=== PATIENT | male | born 1960 | race Caucasian/White ===

== ENCOUNTER 2024-01-19 07:37 | Outpatient (RCR) | payer OTHER, SELFPAY ==
[2024-01-19 07:50] VITALS: BP 149/74
[2024-01-19] MEDS: SODIUM BICARBONATE 1150 MEQ IV (08:00)
== END 2024-02-13 23:59 | disposition home or self-care (01) ==
LOC: OID 07:37
PROVIDERS: ATTENDING PHYSICIAN Surgery Vascular Surgery; FAMILY PHYSICIAN Family Medicine
DX: Z98.890 Other specified postprocedural states (principal); I71.019 Dissection of thoracic aorta, unspecified
CPT/HCPCS: 96360; 96361

== ENCOUNTER → 2024-01-19 08:19 | Outpatient (REF) | payer OTHER, SELFPAY | LOC: RAD 08:19 | PROVIDERS: ATTENDING PHYSICIAN Surgery Vascular Surgery; FAMILY PHYSICIAN Family Medicine | DX: Z98.890 Other specified postprocedural states (principal) | CPT/HCPCS: 71275; 74174; Q9967 ==

== ENCOUNTER → 2025-01-20 09:00 | Outpatient (REF) | payer OTHER, SELFPAY | LOC: RCS 09:00 | PROVIDERS: ATTENDING PHYSICIAN Internal Medicine Cardiovascular Disease | DX: I48.0 Paroxysmal atrial fibrillation (principal); I11.9 Hypertensive heart disease without heart failure; I71.010 Dissection of ascending aorta | CPT/HCPCS: 93306 ==

== ENCOUNTER → 2025-01-28 07:41 | Outpatient (REF) | payer OTHER, SELFPAY | LOC: RAD 07:41 | PROVIDERS: ATTENDING PHYSICIAN Surgery Vascular Surgery; FAMILY PHYSICIAN Family Medicine | DX: I71.010 Dissection of ascending aorta (principal) | CPT/HCPCS: 71275; 74174; Q9967 ==

== ENCOUNTER 2025-06-06 06:09 | Day surgery (SDC) | payer OTHER, SELFPAY ==
[2025-06-03 11:25] LABS: Hematocrit 42.1 % (39.0-52.0); Hemoglobin 14.5 g/dL (13.0-18.0); Mean Corp Hgb Conc. 34.4 g/dL (33.0-37.0); Mean Corpuscular Volume 89.4 fL (80.0-94.0); Platelet Count 245 10^3/uL (130-400); Red Cell Dist. Width 11.7 % (11.5-14.5)
[2025-06-03 11:54] LABS: Blood Urea Nitrogen 19 mg/dl (9-20); Calcium 9.2 mg/dl (8.4-10.2); Carbon Dioxide 30 mmol/L (22-30); Chloride 108 mmol/L (98-107); Glucose 91 mg/dl (70-99); Potassium 5.1 mmol/L (3.5-5.1); Sodium 141 mmol/L (135-145); eGFR > 60.00
[2025-06-03 14:01] VITALS: BMI 26.4
[2025-06-06] VITALS (8 sets, daily range): BP systolic 103–149; BP diastolic 54–79; BMI 26.4
[2025-06-06] MEDS: NORMOSOL-R/PLASMALYTE-A 1000 IV (07:57)
== END 2025-06-06 11:04 | disposition home or self-care (01) ==
LOC: SDS 06:09
PROVIDERS: ATTENDING PHYSICIAN Specialist; FAMILY PHYSICIAN Family Medicine
DX: N35.919 Unspecified urethral stricture, male, unspecified site (principal); Y84.2 Radiological procedure and radiotherapy as the cause of abnormal reaction of the patient, or of later complication, without mention of misadventure at the time of the procedure; N20.1 Calculus of ureter
CPT/HCPCS: 52353; 36415; 74018; 76000; 80048; 85027

== ENCOUNTER 2025-06-20 03:27 | Emergency (ER) | payer OTHER, SELFPAY ==
[2025-06-20 03:30] VITALS: BP 146/103
--- NOTE | 2025-06-20 04:00 | ED.GENMED ---
History of Present Illness
General
Chief Complaint: Urinary Symptoms
Source: patient
Exam Limitations: none
Time Seen by Provider: 06/20/25 03:46
Nursing documentation reviewed up to this point in time: agreed with
History of Present Illness
History of Present Illness:
Note:
CHIEF COMPLAINT(S)
Difficulty with urination post-surgery.
HISTORY OF PRESENT ILLNESS
The patient, a male who underwent surgery two weeks ago due to a blockage, reports difficulty with urination following catheter removal. The catheter was initially removed the Monday before but had to be reinserted for the due to
concerns about prolonged periods without urination. Once removed again on Monday, the patient noted being able to urinate during the day but experiences significant issues at night. The patient describes a period lasting four to five hours of
pacing around the house with severe pressure sensations before finally being able to urinate. He has tried using an ice pack to alleviate discomfort during these episodes. The patient mentioned a specific instance after drinking iced teas and water,
where he felt bloated and was unable to urinate properly for several hours. However, upon arrival at the medical facility, he was able to relieve himself. The sensation is described as a persistent pressure without accompanying pain or spasms. The
patient has a follow-up appointment scheduled with his urologist, Dr. Andrews, the following day.
PAST MEDICAL AND SURIGICAL HISTORY
Prostate cancer with associated scarring and prior management of urinary blockage.
MEDICATIONS
Tamsulosin requested for management of urinary symptoms.
SOCIAL DETERMINANTS AFFECTING HEALTH
Patient reports having to manage symptoms during daily activities such as spending time with his son and attending events, impacting his quality of life.
PHYSICAL EXAM
General: Alert, no acute distress.
Skin: Warm, dry.
Head: Normocephalic, atraumatic.
Neck: Supple, trachea midline.
Eye, Ears, Nose, Mouth, and Throat: Oral mucosa moist.
Cardiovascular: Normal peripheral perfusion, no edema.
Respiratory: Respirations are non-labored.
Gastrointestinal: Abdomen nondistended.
Back: Normal range of motion, normal alignment.
Musculoskeletal: Normal range of motion, normal strength.
Neurological: Alert and oriented to person, place, time, and situation, no focal neurological deficit observed.
Psychiatric: Cooperative, appropriate mood and affect.
PLAN
- Consider Tamsulosin for symptomatic relief of urinary issues.
- Urinalysis to be performed if urine sample is available.
- Patient advised to follow up with his urologist, Dr. Andrews, and consider moving the appointment earlier.
DIFFERENTIAL DIAGNOSIS
The Differential Diagnosis includes, in no particular order and is not limited to:
- Urinary retention secondary to urinary tract obstruction
- Prostate hypertrophy
- Bladder dysfunction
- Post-surgical effects
- Urinary tract infection
- Medication side effects
- Neurogenic bladder
- Urethral stricture
- Post-operative pain management issues
- Anxiety-related symptoms impacting urination
Disposition:
SUMMARY OF ENCOUNTER
Patient presented with urinary retention, reporting inability to urinate from 6 oclock onward. Upon arrival at the emergency department, the patient was able to urinate a significant amount and experienced complete relief. No acute distress was
noted post-voiding.
DISPOSITION
Discharge.
ASSESSMENT
Urinary retention, post-surgical related to recent catheter removal.
PLAN
The patient will follow up with his urologist as scheduled.
FOLLOW-UP INSTRUCTIONS
Please ensure to attend the scheduled appointment with your urologist tomorrow.
MEDICATION RECONCILIATION
Consideration of medication for urinary symptoms was discussed. Tamsulosin might be considered for future management as per urologist.
MEDICAL DECISION MAKING
- Number and Complexity of Problems Addressed: Chronic conditions affecting care include prostate cancer with associated scarring and urinary blockage. Differential includes urinary retention secondary to urinary tract obstruction, prostate
hypertrophy, and post-surgical effects.
- Risk: Prescription medication was considered for future management.
- Care significantly affected by Social Determinants of Health: The patients quality of life is impacted by urinary symptoms affecting daily activities.
DIAGNOSIS
- Urinary Retention, ICD-10: R33.8
Past History
Past History
ED Past Medical History: None
ED Past Surgical History: Urological
Patient has exhibited threatening behavior?: No
PSI?: No
Phy Exam
Physical Exam
Physical Exam:
.
Course
Vital Signs
Initial and Last Documented VS:
Initial Vital Signs
Temp Pulse Resp BP Pulse Ox
98.3 F 87 24 146/103 97
06/20/25 03:30 06/20/25 03:30 06/20/25 03:30 06/20/25 03:30 06/20/25 03:30
Last Documented Vital Signs
Temp Pulse Resp BP Pulse Ox
98.3 F 88 18 124/67 97
06/20/25 03:30 06/20/25 04:01 06/20/25 04:01 06/20/25 04:01 06/20/25 04:02
*Pulse Oximetry
SaO2: 97
Oxygen Mode of Delivery: Room air
Patient hypoxic: no
*Critical Care Note
Total Time (30-74mins, 75-104mins- exclusive of procedures): Not Applicable
ED Attending Note
-
Portions of this chart may have been created with voice recognition software.� Occasional wrong word or��sound alike� substitutions may have occurred due to the inherent limitations of voice recognition software.
Discharge Plan
Departure
Patient Disposition: Home (Routine Discharge)
Date of Disposition: 06/20/25
Time of Disposition: 04:00
Patient with high blood pressure during this ER visit?: Yes
Condition: Good
Discharge Problem:
Acute urinary retention
Instructions: Urinary retention (DC), BLOOD PRESSURE
Prescriptions:
No Action
aspirin 81 mg Tablet,Chewable
81 mg PO DAILY Qty: 0 3RF
multivitamin Tablet
1 tab PO DAILY
diltiazem HCl 120 mg Capsule,Extended Release 24 Hr
120 mg PO HS
lisinopril 10 mg Tablet
10 mg PO DAILY
docusate sodium [Colace] 100 mg Capsule
100 mg PO DAILY
rosuvastatin [Crestor] 20 mg Tablet
20 mg PO DAILY
metoprolol tartrate 100 mg tablet
100 mg PO BID
tamsulosin 0.4 mg Capsule
0.4 mg PO DAILY Qty: 30 0RF
Referrals:
Edy Spain Jr., MD [Active, Urology]
Activity Restrictions/Additional Instructions:
Thank You for choosing [facility].
It was a pleasure meeting you and taking part in your care. We hope for your continued healing and wellness.
Please read discharge instructions in their entirety. However, they are for general education and may not describe your exact diagnosis at discharge. Information on your ER visit and medical conditions were discussed with you along with appropriate
follow up information...
If indicated, please take your medications as instructed and indicated on discharge paperwork.
Please schedule a follow up appointment as directed. Call to schedule an appointment
Please return to the emergency department with ANY change in, persisting, or worsening of symptoms. If any of your symptoms do not improve, or persist, or become more severe within 6-12 hours, please return to the emergency department for further
care.
Please return to the emergency department if you develop a headache, neck pain/stiffness, fever greater than 100.4F, chest pain, shortness of breath, persistent nausea, vomiting, slurred speech, difficulty walking, numbness/tingling, weakness, signs
of infection or any other symptoms that are worrisome to you.
If you have any questions or concerns please do not hesitate to call the Hospital at or E-mail me directly at [email or web address]
Interventions
Interventions:
*Risk Screen - Suicide Last Done: 06/20/25 03:30
*General Assessment Last Done: 06/20/25 03:56
*Neglect/Abuse Screening Last Done: 06/20/25 03:56
*ED- Fall Risk Assessment Last Done: 06/20/25 03:56
*ED COVID-19 Vaccine History Last Done: 06/20/25 03:56
*Nursing Disposition Last Done: 06/20/25 04:04
ED-Male Genitourinary Assessment Last Done: 06/20/25 03:56
Discharge Date and Time
Discharge Date/Time: 06/20/25 04:15
Print Language: CZECH
[2025-06-20 04:01] VITALS: BP 124/67
== END 2025-06-20 04:15 | disposition home or self-care (01) ==
LOC: EMR 03:27
PROVIDERS: EMERGENCY PHYSICIAN Student in an Organized Health Care Education/Training Program; FAMILY PHYSICIAN Family Medicine
DX: R33.9 Retention of urine, unspecified (principal); R03.0 Elevated blood-pressure reading, without diagnosis of hypertension; C61 Malignant neoplasm of prostate
CPT/HCPCS: 99282

== ENCOUNTER 2025-07-22 04:43 | Inpatient (IN) | payer OTHER, SELFPAY ==
[2025-07-21 21:04] VITALS: BP 145/71
[2025-07-21 21:25] LABS: Hematocrit 39.7 % (39.0-52.0); Hemoglobin 14.0 g/dL (13.0-18.0); Mean Corp Hgb Conc. 35.3 g/dL (33.0-37.0); Mean Corpuscular Volume 85.7 fL (80.0-94.0); Nucleated Red Blood Cells % 0 % (-); Platelet Count 317 10^3/uL (130-400); Red Cell Dist. Width 11.6 % (11.5-14.5)
[2025-07-21 21:36] LABS: ALT (SGPT) 519 U/L (0-50); Albumin 4.1 g/dl (3.5-5.0); Alkaline Phosphatase 173 U/L (38-126); Blood Urea Nitrogen 23 mg/dl (9-20); Calcium 9.5 mg/dl (8.4-10.2); Carbon Dioxide 29 mmol/L (22-30); Chloride 104 mmol/L (98-107); Glucose 105 mg/dl (70-99); Potassium 4.1 mmol/L (3.5-5.1); Sodium 138 mmol/L (135-145); Total Protein 7.2 g/dl (6.3-8.2); eGFR > 60.00
[2025-07-21 21:42] LABS: Troponin I 0.015 ng/ml
[2025-07-21 21:47] LABS: AST (SGOT) 995 U/L (17-59)
[2025-07-21 22:09] VITALS: BP 183/79
[2025-07-21 22:10] VITALS: BMI 25.6
[2025-07-21 23:00] VITALS: BP 148/72
[2025-07-21] MEDS: NSS 1000 IV (23:57)
[2025-07-21] MEDS: TORADOL 15 MG IV (23:57)
[2025-07-21] MEDS: ZOFRAN 4 MG IV (23:57)
[2025-07-22] VITALS (11 sets, daily range): BP systolic 113–151; BP diastolic 61–79; BMI 25.6; BMI 25.5
[2025-07-22 00:01] LABS: Lipase 119 U/L (23-300)
--- NOTE | 2025-07-22 00:03 | ED.GENMED ---
History of Present Illness
General
Chief Complaint: Chest Pain
Source: patient
Exam Limitations: none
Time Seen by Provider: 07/21/25 23:24
History of Present Illness
History of Present Illness:
65-year-old male with history of coronary artery disease requiring CABG and stent presents complaining of lower chest and upper abdominal pain starting yesterday after eating pepperoni pizza. He ate the pizza again today and had more pain with
vomiting. The pain persists. Pain does not radiate to the back. Is not pleuritic in nature. No fevers. No shortness of breath. He was concerned about his prior cardiac history relative to his current discomfort.
Past History
Past History
ED Past Medical History: None
ED Past Surgical History: Urological
Patient has exhibited threatening behavior?: No
PSI?: No
Phy Exam
Physical Exam
Physical Exam:
General: Well-appearing male no acute respiratory distress
HEENT normal cephalic atraumatic
Heart: Regular rate and rhythm
Lungs: Clear no wheeze
Abdomen is soft tender in the epigastric region and mildly to the right upper quadrant negative Jordan sign no guarding nondistended
Extremities: No cyanosis
Scores
Heart Score for Chest Pain Patients
STEMI patient?: No
History: Slightly or Non-Suspicious
ECG: Normal
Age: >/= 65 years
Risk Factors: >/= 3 Risk Factors or History of CAD
Troponin: </= Normal Limit
Heart Score for Chest Pain Patients: 4
Heart Score Risk: 20.3% MACE over next 6 weeks
Course
Orders/Labs/Results
Orders:
Orders
07/21/25 20:59
ECG [Electrocardiogram (*1)] Urgent
Reason for Study: Chest Pain
EKG- Treatment ONCE
07/21/25 21:12
Complete Blood Count/With Diff Urgent
Comprehensive Metabolic Panel Urgent
Lipase Urgent
Comment: ADD ON
Troponin I Urgent
07/21/25 23:25
Add On- LAB Urgent
Tests Added?: lipase
07/21/25 23:38
0.9% Sodium Chloride 1000 ml [Nss] 1,000 ml IV BOLUS
Ketorolac [Toradol] 15 mg IV NOW STA
Ondansetron Injectable [Zofran] 4 mg IV NOW STA
07/22/25 00:00
US Abdomen Complete/Upper Urgent
Reason For Exam: elevated LFT, abdominal pain
Abnormal Lab Results
07/21/25
21:12
RBC 4.63 L 10^6/uL
(4.70-6.10)
Absolute Neuts (auto) 8.1 H 10^3/uL
(1.4-6.5)
Neutrophils % 78.9 H %
(42.2-75.2)
Lymphocytes % 14.2 L %
(20.5-51.1)
BUN 23 H mg/dl
(9-20)
Glucose 105 H mg/dl
(70-99)
Total Bilirubin 2.5 H mg/dl
(0.2-1.3)
AST 995 H* U/L
(17-59)
ALT 519 H* U/L
(0-50)
Alkaline Phosphatase 173 H U/L
(38-126)
07/21/25 21:12
07/21/25 21:12
Vital Signs
Initial and Last Documented VS:
Initial Vital Signs
Temp Pulse Resp BP Pulse Ox
98.2 F 91 18 145/71 99
07/21/25 21:04 07/21/25 21:04 07/21/25 21:04 07/21/25 21:04 07/21/25 21:04
Last Documented Vital Signs
Temp Pulse Resp BP Pulse Ox
98.2 F 82 15 148/72 98
07/21/25 21:04 07/22/25 00:45 07/22/25 00:45 07/21/25 23:00 07/22/25 00:45
MDM/Problems Addressed
Differential Diagnosis Includes:
Lower chest and epigastric pain. History of coronary artery disease requiring CABG and stent placement. Consider ACS versus gastritis or pancreatitis or biliary colic
EKG shows sinus rhythm with rate of 73 and no acute ischemic changes
LFTs are high with a bilirubin of 2.5 ALT of 519 and AST of 995.
Lipase is normal. Will order ultrasound. Toradol ordered for pain fluids and Zofran ordered
*Pulse Oximetry
SaO2: 97
Oxygen Mode of Delivery: Room air
Patient hypoxic: no
*Critical Care Note
Total Time (30-74mins, 75-104mins- exclusive of procedures): Not Applicable
Update Note
Update Note:
Ultrasound demonstrates gallstones and gallbladder. Discussed emergency room attending. Patient is feeling improved after medicine here. But given significant liver function abnormalities concern for possible common bile duct stone. Zosyn
ordered. Will mid to hospital for further evaluation
ED Attending Note
-
Portions of this chart may have been created with voice recognition software.� Occasional wrong word or��sound alike� substitutions may have occurred due to the inherent limitations of voice recognition software.
Discharge Plan
Departure
Patient Disposition: Admit
Date of Disposition: 07/22/25
Time of Disposition: 01:16
Presentation/result/management discussed w/ accepting MD/DO: Hospitalist
Discharge Problem:
Abdominal pain
Prescriptions:
No Action
aspirin 81 mg Tablet,Chewable
81 mg PO DAILY Qty: 0 3RF
multivitamin Tablet
1 tab PO DAILY
diltiazem HCl 120 mg Capsule,Extended Release 24 Hr
120 mg PO HS
lisinopril 10 mg Tablet
10 mg PO DAILY
docusate sodium [Colace] 100 mg Capsule
100 mg PO DAILY
rosuvastatin [Crestor] 20 mg Tablet
20 mg PO DAILY
metoprolol tartrate 100 mg tablet
100 mg PO BID
tamsulosin 0.4 mg Capsule
0.4 mg PO DAILY Qty: 30 0RF
Referrals:
Lobito Barrett MD [Family Provider, Family Practice]
Interventions
Interventions:
*Risk Screen - Suicide Last Done: 07/21/25 21:07
*General Assessment Last Done: 07/21/25 21:07
*Neglect/Abuse Screening Last Done: 07/21/25 21:07
*ED- Fall Risk Assessment Last Done: 07/21/25 22:15
*ED COVID-19 Vaccine History Last Done: 07/21/25 21:07
*ED Influenza Vaccine History Last Done: 07/21/25 21:07
ED- Cardiac Assessment Last Done: 07/21/25 22:10
Discharge Date and Time
Print Language: HUNGARIAN
[2025-07-22] MEDS: ZOSYN 50 IV (01:31)
[2025-07-22 03:04] LABS: Troponin I 0.017 ng/ml
--- NOTE | 2025-07-22 04:38 | HPS.HSE ---
Family Physician
-
Family Physician: Lobito Barrett
Chief Complaint
-
Abd Pain, N/V
History of Present Illness
Patient is a 65y M with PMH significant for aortic dissection s/p repair, hypertension and prostate cancer who presents to ED complaining of abdominal pain and N/V. Patient states that he woke Monday AM with epigastric abdominal pain. A short
time later he developed nausea and had multiple episodes of non-bloody emesis throughout the day. His pain also persisted throughout the day and was severe at times. He denies any prior history of similar symptoms.
Patient presented to the ED for further evaluation. In the ED his pain and nausea resolved after medication and have not recurred.
CT shows gallstones with borderline GB wall thickness and CBD size.
Medical History
Past Medical History
Past Medical History: Reports Other
Additional Past Medical History:
Aortic Dissection
Hypertension
Prostate Cancer s/p XRT
Kidney Stones
Past Surgical History: Reports Other
Additional Past Surgical History:
Aortic Dissection Repair (2022)
Cysto/ Lithotripsy (6 weeks ago)
Social History
Tobacco: Non-smoker
Alcohol: Occasional
Drug: None
Family History
Family History: Not pertinent
Allergies / Home Medications
Allergies reflects when Allergies were last updated in [facility].
Home Medications with original date entered in [facility]
Allergy/Medication List:
Allergies
Allergy/AdvReac Type Severity Reaction Status Date / Time
No Known Allergies Allergy Verified 07/21/25 21:08
Home Medications
aspirin 81 mg chewable tablet 81 mg PO DAILY #0 tabs 08/31/22
diltiazem HCl 120 mg capsule,24 hr,extended release 120 mg PO HS Arrhythmia 03/14/23
lisinopril 10 mg tablet 10 mg PO DAILY Blood Pressure 03/14/23
multivitamin 1 tab PO DAILY Supplement 03/14/23
rosuvastatin 20 mg tablet (Crestor) 20 mg PO DAILY High Cholesterol 03/14/23
metoprolol tartrate 100 mg tablet 100 mg PO BID Blood Pressure 03/25/23
tamsulosin 0.4 mg capsule 0.4 mg PO DAILY #30 caps 03/25/23
Review of Systems
-
History Source: Patient
Constitutional: Denies Fever or Chills
Respiratory: Denies Cough or Trouble Breathing
Cardiac: Denies Chest Pain or Palpitations
Abdomen/GI: Reports Abdominal Pain, Nausea and Vomiting; Denies Diarrhea, Constipated, Bloody Stools or Black Stools
: Denies Dysuria, Frequency or Flank Pain
Neurological: Denies Dizzy or Headache
Psych: Denies Depression or Anxiety
Physical Exam
Vital Signs
Vital Signs
Temp Pulse Resp BP Pulse Ox
98.2 F 79 11 142/79 99
07/21/25 21:04 07/22/25 04:00 07/22/25 04:00 07/22/25 04:00 07/22/25 04:00
Physical Exam
General: Other (65y M in no acute distress.)
HEENT: Moist mucous membranes and PERRLA
Respiratory: Clear; No Wheezes, Rales or Rhonchi
Cardiac: S1/S2 and Regular Rhythm; No Murmur
GI: Soft, Non Tender, Non Distended and Normal Bowel Sounds
Musculoskeletal: No Clubbing, No Cyanosis and No Edema
Neuro: AO x 3
Laboratory Results
-
07/21/25 21:12
07/21/25 21:12
Laboratory Results
Total Bilirubin 2.5 mg/dl (0.2-1.3) H 07/21/25 21:12
AST 995 U/L (17-59) H* 07/21/25 21:12
ALT 519 U/L (0-50) H* 07/21/25 21:12
Alkaline Phosphatase 173 U/L (38-126) H 07/21/25 21:12
Troponin I 0.017 ng/ml 07/22/25 02:22
Lipase 119 U/L (23-300) 07/21/25 21:12
Impression/Plan
-
A/P: Patient is a 65y M with PMH significant for aortic dissection s/p repair who presents to ED complaining of abdominal pain with N/V.
Symptomatic Cholelithiasis
- Admit for further evaluation and treatment.
- Abnormal LFTs, abd pain, nausea / vomiting and abnormal CT findings.
- Symptoms resolved since arrival - ? passed CBD stone.
- Supportive care with IVFs, NPO, pain control and antiemetics.
- GI evaluation for additional recommendations - MRCP v ERCP.
- Follow for any new / worsening symptoms.
Benign Hypertension
History of Aortic Dissection s/p Repair
- Stable. BP well-controlled.
- Continue current med regimen with holding parameters.
History of Prostate Cancer
- Stable. Continue tamsulosin.
- Bladder scan protocol.
DVT Prophylaxis: SCDs
Code Status: Full
[2025-07-22 06:47] LABS: Hematocrit 35.4 % (39.0-52.0); Hemoglobin 12.3 g/dL (13.0-18.0); Mean Corp Hgb Conc. 34.7 g/dL (33.0-37.0); Mean Corpuscular Volume 87.2 fL (80.0-94.0); Platelet Count 260 10^3/uL (130-400); Red Cell Dist. Width 11.6 % (11.5-14.5)
[2025-07-22 07:21] LABS: ALT (SGPT) 516 U/L (0-50); AST (SGOT) 726 U/L (17-59); Albumin 3.3 g/dl (3.5-5.0); Alkaline Phosphatase 140 U/L (38-126); Blood Urea Nitrogen 24 mg/dl (9-20); Calcium 8.4 mg/dl (8.4-10.2); Carbon Dioxide 32 mmol/L (22-30); Chloride 106 mmol/L (98-107); Estimated Creatinine Clearance 56 ml/min; Glucose 88 mg/dl (70-99); Potassium 4.2 mmol/L (3.5-5.1); Sodium 139 mmol/L (135-145); Total Protein 5.9 g/dl (6.3-8.2); eGFR 55.78
--- NOTE | 2025-07-22 08:45 | EDCM ---
CM reviewed chart and met with pt bedside in Ed. Lives with his son, Cherelle [facility], 2-3 JORGE, first floor half bath, full flight to second floor bedroom and full bath.
Independent in ADLs, personal care and ambulation at baseline. No assistive devices.
Confirms prescription coverage.
No hx VN or SNf
PCP: Arnulfo Barrett
Pharmacy: [facility]
Anticipate discharge home, no needs. CM will continue to follow.
[2025-07-22] MEDS: LR 1000 IV ×2 (09:11→20:22)
[2025-07-22] MEDS: FLOMAX 0.4 MG PO (09:18)
[2025-07-22] MEDS: NSS (PRESERVATIVE FREE) 10 ML IV (09:18)
[2025-07-22] MEDS: LOW STRENGTH ASPIRIN 81 MG PO (09:18)
[2025-07-22] MEDS: PROTONIX IV 40 MG IV (09:18)
--- NOTE | 2025-07-22 09:35 | TRANSFER ---
Patient arrived from ED via wheelchair. Patient AAO x 3. VSS. Denies pain. OOB independent. IV fluids initiated. Patient NPO with sips of clears. GI consulted. patient educated on plan of care and potential treatments/procedures. Per patient, he
does have a business trip, out to [place] tomorrow and would like to be discharged sooner than later. Patient oriented to room. All patient needs met. No bed alarms due to patient being independent. Call carter and personal belongings within
reach.
--- NOTE | 2025-07-22 09:57 | CON.GI ---
Addendum entered and electronically signed by Gita Gibson MD 07/22/25 13:25:
I saw and examined the patient.
The SPEECH CORRECTION CONSULTANT or PA's note was reviewed and I agree with the note.
Comment:
This patient is a 65-year-old man with a history of coronary disease, CABG, aortic dissection with repair who was admitted with epigastric pain. In the ER he had abnormal LFTs and an ultrasound that showed cholelithiasis. He states that his pain
did resolve.
abd: soft, nontender
impression
abd pain
cholelithiasis
abnl lfts
plan:
- He does need better imaging to rule out choledocholithiasis which ideally should be with MRCP.
- Would follow LFTs and I would order hep panel as well. He does not have a history of any hepatitis however
- If he does have choledocholithiasis he will need an ERCP.
- NPO and ivf for now
Original Note:
Consultation
-
Date/Time Consultation Requested: 07/22/25 0850
Date/Time Consultation Performed: 07/22/25 0950
Requesting Provider: Bronson Reyes DO
Performing Provider: CEDRIC Cullen, Gita Gibson MD
Reason for Consultation: increased LFT's, abnormal US
Medical History
Chief Complaint / HPI
Chief Complaint: abdominal pain
History of Present Illness:
Pt is a 65yo hx CAD with prior stents on ASA daily, CABG, prostate CA with prior XRT, aortic dissection with prior repair 2021, TEVAR 2022, cysto and lithotripsy of ureteral stone and stricture dilation 05/2025 now presents with chest/abdominal pain.
On admission noted with bili 2.5, AST 995, ALT 519, alk phos 173 with lipase 119 with prior normal AST/ALT in January. US on admission with cholelithiasis and mild thickening of the gallbladder wall with top normal common bile duct. Acute
cholecystitis cannot be excluded and correlation with liver enzymes is needed and fatty liver.
In review with patient noted with new onset of chest/epigastric pain 07/21 after eating pizza. Pain was dull and rated 8/10 with nausea/vomiting of bile. Pain now resolved but noted with elevated LFT's. He also admits to some recent
unintentional wt loss of 10 lbs. He otherwise denies dysphagia, GERD, diarrhea, constipation, or rectal bleeding. No change in urine or stool color. No anticoagulation and occasional Tylenol use prior to admission.
Past Medical History
Past Medical History: CAD, Cancer (prostate CA with prior XRT), HTN and Other (type A aortic distention )
Past Surgical History: Cardiac (CABG, prior stents ), Urological (cysto and lithotripsy of ureteral stone and stricture dilation 05/2025 ) and Other (Emergent ascending aorta and vannesa arch replacement/resuspection adn reair of aortic valve 08/2022,
TEVAR 2022)
Social History
Tobacco: Non-Smoker
Alcohol: Occasional
Drug: None
Living: With Family
Employment: Employed
Family History
Family History: Other (no family hx Gallbladder, pancreatitic )
Allergies / Home Medications
Allergy/AdvReac Type Severity Reaction Status Date / Time
No Known Allergies Allergy Verified 07/21/25 21:08
�Medication �Instructions �Recorded
aspirin 81 mg chewable tablet 81 mg PO DAILY #0 tabs 08/31/22
diltiazem HCl 120 mg capsule,24 120 mg PO HS Arrhythmia 03/14/23
hr,extended release
lisinopril 10 mg tablet 10 mg PO DAILY Blood Pressure 03/14/23
rosuvastatin 20 mg tablet (Crestor) 20 mg PO DAILY High Cholesterol 03/14/23
tamsulosin 0.4 mg capsule 0.4 mg PO DAILY #30 caps 03/25/23
metoprolol succinate 200 mg 100 mg PO BID 07/22/25
tablet,extended release 24 hr
(Toprol XL)
therapeutic multivitamin 1 tab PO DAILY 07/22/25
Review of Systems
-
History Source: Patient
Constitutional: Reports Weight Loss (10 lbs recently unintentional )
EENT: Reports No Symptoms
Respiratory: Reports No Symptoms
Cardiac: Reports No Symptoms
Abdomen/GI: Reports Abdominal Pain, Nausea and Vomiting
: Reports No Symptoms
Musculoskeletal: Reports No Symptoms
Skin: Reports No Symptoms
Neurological: Reports Weakness
Endocrine: Reports No Symptoms
Hematologic/Lymphatic: Reports No Symptoms
Vital Signs
Temp Pulse Resp BP Pulse Ox
97.9 F 66 16 150/74 99
07/22/25 09:24 07/22/25 09:24 07/22/25 09:24 07/22/25 09:24 07/22/25 09:24
Physical Exam
Exam
General: Well Developed, Well Nourished and No Apparent Distress
HEENT: Normocephalic and Anicteric
Respiratory: Clear
Cardiac: Regular Rhythm
GI: Soft, Non Tender and Non Distended
Musculoskeletal: No Clubbing and No Cyanosis
Skin: Warm and Dry
Neuro: Awake, Alert and AO x 3
Psych: Calm
Results
WBC 6.6 10^3/uL (4.8-10.8) 07/22/25 06:24
Hgb 12.3 g/dL (13.0-18.0) L 07/22/25 06:24
Hct 35.4 % (39.0-52.0) L 07/22/25 06:24
MCV 87.2 fL (80.0-94.0) 07/22/25 06:24
Plt Count 260 10^3/uL (130-400) 07/22/25 06:24
Absolute Neuts (auto) 8.1 10^3/uL (1.4-6.5) H 07/21/25 21:12
Sodium 139 mmol/L (135-145) 07/22/25 06:24
Potassium 4.2 mmol/L (3.5-5.1) 07/22/25 06:24
Chloride 106 mmol/L (98-107) 07/22/25 06:24
Carbon Dioxide 32 mmol/L (22-30) H 07/22/25 06:24
BUN 24 mg/dl (9-20) H 07/22/25 06:24
Creatinine 1.4 mg/dL (0.7-1.3) H 07/22/25 06:24
Calcium 8.4 mg/dl (8.4-10.2) 07/22/25 06:24
Total Bilirubin 2.7 mg/dl (0.2-1.3) H 07/22/25 06:24
AST 726 U/L (17-59) H* 07/22/25 06:24
ALT 516 U/L (0-50) H* 07/22/25 06:24
Alkaline Phosphatase 140 U/L (38-126) H 07/22/25 06:24
Lipase 119 U/L (23-300) 07/21/25 21:12
Diagnostic Image Results:
07/22- US abdomen
1. There is cholelithiasis and mild thickening of the gallbladder wall with top normal common bile duct. Acute cholecystitis cannot be excluded and correlation with liver enzymes is needed.
2. There is fatty infiltration of the liver
Prior GI Procedures:
EGD: none
Colonoscopy: [facility] in past recalls as normal
Assessment / Plan
-
Pt is a 65yo hx CAD with prior stents on ASA daily, CABG, prostate CA with prior XRT, aortic dissection with prior repair 2021, TEVAR 2022, cysto and lithotripsy of ureteral stone and stricture dilation 05/2025 now presents with chest/abdominal
pain. On admission noted with bili 2.5, AST 995, ALT 519, alk phos 173 with lipase 119 with prior normal AST/ALT in January. US on admission with cholelithiasis and mild thickening of the gallbladder wall with top normal common bile duct. Acute
cholecystitis cannot be excluded and correlation with liver enzymes is needed and fatty liver.
-acute onset of epigastric/chest post prandial pain
-elevated LFT's
-US with cholelithiasis and mild GB wall thickening top normal CBD
other med problems:
CAD with prior stents, CABG, prostate CA with prior XRT, aortic dissection with prior repair 2021, TEVAR 2022, cysto and lithotripsy of ureteral stone and stricture dilation 05/2025
PLAN:
etiology of symptoms related to cholecystitis, CBD stone, vs other
plan for MRI with MRCP
trend labs, monitor for fever
pending imaging may need ERCP/surgical eval vs need for further liver serology work up
NPO
IVF
pain control as needed bur currently pain free
pt due to travel to [place] in AM -- advised to hold on trip with current work up
-
-
Thank you for consultation and allowing me to participate in the patient's care. Please call the regional economist GI physician during the after hours with any questions or concerns.
--- NOTE | 2025-07-22 15:11 | W.PN.UPDATE ---
Update Note
Progress Note Update
07/22 MRI with MRCP with and without contrast
1. CHOLELITHIASIS, gallbladder sludge, and gallbladder distention.
2. MILD INTRAHEPATIC and EXTRAHEPATIC BILIARY DILATATION.
3. Mild chronic bilateral renal disease.
4. Chronic abdominal aortic dissection.
5. 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
6. Moderate distention of the proximal colon with fecal material suggesting CONSTIPATION.
reviewed MRI with patient , Dr. Gibson, Dr. Connolly , nursing staff, and Dr. Hammonds
plan for EUS tomorrow pending results consider surgical eval
ok for clears now then low fat dinner then NPO in AM for EUS
repeat labs in AM
hepatitis panel added
will add Miralax daily with no stools for 3 days and constipation on imaging
--- NOTE | 2025-07-22 15:31 | W.PN.HOSP.TC ---
Today's Communication/Plan
-
Challenge with oral intake.
Follow LFT.
EGD with EUS in the morning
Empiric antibiotic
Assessment / Plan
Assessment / Plan
Impression/plan
A/P: Patient is a 65y M with PMH significant for aortic dissection s/p repair who presents to ED complaining of abdominal pain with N/V.
Symptomatic Cholelithiasis/biliary colic, concern for acute cholecystitis
US abdomen:
There is cholelithiasis and mild thickening of the gallbladder wall with top normal common bile duct. Acute cholecystitis cannot be excluded and correlation with liver enzymes is needed.
MRI abdomen:
1. CHOLELITHIASIS, gallbladder sludge, and gallbladder distention.
2. MILD INTRAHEPATIC and EXTRAHEPATIC BILIARY DILATATION.
3. Mild chronic bilateral renal disease.
4. Chronic abdominal aortic dissection.
5. 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
6. Moderate distention of the proximal colon with fecal material suggesting CONSTIPATION.
- Abnormal LFTs, abd pain, nausea / vomiting and abnormal CT findings.
- Symptoms resolved since arrival - ? passed CBD stone.
- Supportive care with IVFs, NPO, pain control and antiemetics.
Challenge with oral intake tonight.
EGD with EUS in the morning.
Consider surgical consult.
Noted with left shift on CBC improved. Would continue antibiotics at this point. Status post single dose of Zosyn in the ED. Will transition to Unasyn.
Acute kidney injury. Creatinine 1.4.
Hold lisinopril.
Continue IV fluids
Avoid NSAIDs
Follow BMP
Benign Hypertension
History of Aortic Dissection s/p Repair
- Stable. BP well-controlled.
- Continue current med regimen with holding parameters.
Status post aortic aneurysm endovascular repair 2022
History of Prostate Cancer
- Stable. Continue tamsulosin.
- Bladder scan protocol.
DVT Prophylaxis: SCDs
Code Status: Full
Anticipated Discharge: 24 - 48 hours
Subjective/Interval History
-
Date of Service: July 22, 2025
Objective Data
-
Labs:
Laboratory Results
07/22/25
06:24
WBC 6.6
Hgb 12.3 L
Hct 35.4 L
Plt Count 260
Sodium 139
Potassium 4.2
Chloride 106
Carbon Dioxide 32 H
BUN 24 H
Creatinine 1.4 H
Glucose 88
Calcium 8.4
Total Bilirubin 2.7 H
AST 726 H*
ALT 516 H*
Alkaline Phosphatase 140 H
Vital Signs:
Vital Signs
Temp Pulse Resp BP Pulse Ox
97.9 F 66 16 150/74 99
07/22/25 09:24 07/22/25 09:24 07/22/25 09:24 07/22/25 09:24 07/22/25 09:24
Physical Exam
-
General: Well Developed and No Apparent Distress
HEENT: Normocephalic, Atraumatic and Moist Mucous Membranes
Respiratory: Clear to Auscultation
Cardiac: Regular Rhythm and S1/S2; Negative Murmur, Rub or Gallop
GI: Soft, Nontender, Nondistended and Normal Bowel Sounds; Negative Organomegaly
Rectal: Deferred by Provider
Musculoskeletal: No Clubbing, No Cyanosis and No Edema
Skin: Negative Rash
Neuro: Nonfocal/Grossly Intact
[2025-07-22] MEDS: MIRALAX 17 GRAMS PO (16:23)
[2025-07-22] MEDS: UNASYN IV ×2 (17:07→21:11)
[2025-07-22] MEDS: TOPROL XL 100 MG PO (20:22)
[2025-07-22] MEDS: CARDIZEM CD PO (23:06)
[2025-07-23] VITALS (9 sets, daily range): BP systolic 105–182; BP diastolic 61–92; BMI 26.0
[2025-07-23] MEDS: UNASYN IV ×4 (04:12→22:52)
[2025-07-23 08:05] LABS: INR 1.20; PT 15.8 Sec (11.4-14.6)
[2025-07-23 09:00] LABS: Hematocrit 35.2 % (39.0-52.0); Hemoglobin 12.3 g/dL (13.0-18.0); Mean Corp Hgb Conc. 34.9 g/dL (33.0-37.0); Mean Corpuscular Volume 86.9 fL (80.0-94.0); Platelet Count 274 10^3/uL (130-400); Red Cell Dist. Width 11.6 % (11.5-14.5)
[2025-07-23] MEDS: NSS (PRESERVATIVE FREE) 10 ML IV (09:00)
[2025-07-23] MEDS: TOPROL XL 100 MG PO ×2 (09:00→21:07)
[2025-07-23] MEDS: PROTONIX IV 40 MG IV (09:00)
[2025-07-23] MEDS: LOW STRENGTH ASPIRIN 81 MG PO (09:00)
[2025-07-23] MEDS: MIRALAX 17 GRAMS PO (09:00)
[2025-07-23] MEDS: FLOMAX 0.4 MG PO (09:00)
[2025-07-23 09:02] LABS: ALT (SGPT) 354 U/L (0-50); AST (SGOT) 298 U/L (17-59); Albumin 3.1 g/dl (3.5-5.0); Alkaline Phosphatase 124 U/L (38-126); Blood Urea Nitrogen 19 mg/dl (9-20); Calcium 8.1 mg/dl (8.4-10.2); Carbon Dioxide 28 mmol/L (22-30); Chloride 105 mmol/L (98-107); Estimated Creatinine Clearance 71 ml/min; Glucose 76 mg/dl (70-99); Potassium 4.3 mmol/L (3.5-5.1); Sodium 137 mmol/L (135-145); Total Protein 5.6 g/dl (6.3-8.2); eGFR > 60.00
[2025-07-23] MEDS: LR 1000 IV ×2 (09:12→16:50)
--- NOTE | 2025-07-23 15:07 | CM ---
Home when stable, no needs.
Plan; Home when stable, no needs.
--- NOTE | 2025-07-23 17:27 | W.PN.HOSP.TC ---
Today's Communication/Plan
-
ERCP with CBD stone removed
General Surgery consulted
Assessment / Plan
Assessment / Plan
Impression/plan
A/P: Patient is a 65y M with PMH significant for aortic dissection s/p repair who presents to ED complaining of abdominal pain with N/V.
Symptomatic Cholelithiasis/biliary colic, concern for acute cholecystitis
US abdomen:
There is cholelithiasis and mild thickening of the gallbladder wall with top normal common bile duct. Acute cholecystitis cannot be excluded and correlation with liver enzymes is needed.
MRI abdomen:
1. CHOLELITHIASIS, gallbladder sludge, and gallbladder distention.
2. MILD INTRAHEPATIC and EXTRAHEPATIC BILIARY DILATATION.
3. Mild chronic bilateral renal disease.
4. Chronic abdominal aortic dissection.
5. 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
6. Moderate distention of the proximal colon with fecal material suggesting CONSTIPATION.
- Abnormal LFTs, abd pain, nausea / vomiting and abnormal CT findings.
- Symptoms resolved since arrival - ? passed CBD stone.
- Supportive care with IVFs, NPO, pain control and antiemetics.
Challenge with oral intake tonight.
ERCP 07/23 with CBD stone removed with sphincterectomy and pancreatic stent
General Surgery consultation with consideration of cholecystectomy
Noted with left shift on CBC improved. Would continue antibiotics at this point. Status post single dose of Zosyn in the ED. Will transition to Unasyn.
Acute kidney injury. Creatinine 1.4. Improved
Hold lisinopril.
Observe off IV fluids
Avoid NSAIDs
Follow BMP
Benign Hypertension
History of Aortic Dissection s/p Repair
- Stable. BP well-controlled.
- Continue current med regimen with holding parameters.
Status post aortic aneurysm endovascular repair 2022
History of Prostate Cancer
- Stable. Continue tamsulosin.
- Bladder scan protocol.
DVT Prophylaxis: SCDs
Code Status: Full
Anticipated Discharge: 24 - 48 hours
Subjective/Interval History
-
Date of Service: July 23, 2025
Objective Data
-
Labs:
Laboratory Results
07/23/25
06:39
WBC 7.1
Hgb 12.3 L
Hct 35.2 L
Plt Count 274
PT 15.8 H
INR 1.20
Sodium 137
Potassium 4.3
Chloride 105
Carbon Dioxide 28
BUN 19
Creatinine 1.1
Glucose 76
Calcium 8.1 L
Total Bilirubin 1.1 D
AST 298 H
ALT 354 H
Alkaline Phosphatase 124
Vital Signs:
Vital Signs
Temp Pulse Resp BP Pulse Ox
97.0 F 58 13 170/84 98
07/23/25 16:40 07/23/25 16:30 07/23/25 16:30 07/23/25 16:30 07/23/25 16:30
I&O
07/22/25 07/23/25 07/24/25
06:59 06:59 06:59
Intake Total 2420 / 2420 50 / 50
Balance 2420 / 2420 50 / 50
Physical Exam
-
General: Well Developed and No Apparent Distress
HEENT: Normocephalic, Atraumatic and Moist Mucous Membranes
Respiratory: Clear to Auscultation
Cardiac: Regular Rhythm and S1/S2; Negative Murmur, Rub or Gallop
GI: Soft, Nontender, Nondistended and Normal Bowel Sounds; Negative Organomegaly
Rectal: Deferred by Provider
Musculoskeletal: No Clubbing, No Cyanosis and No Edema
Skin: Negative Rash
Neuro: Nonfocal/Grossly Intact
[2025-07-23] MEDS: CARDIZEM CD 120 MG PO (22:57)
[2025-07-24] VITALS (14 sets, daily range): BP systolic 106–151; BP diastolic 59–85; BMI 26.0
[2025-07-24] MEDS: UNASYN IV ×4 (03:43→21:20)
[2025-07-24] MEDS: LOW STRENGTH ASPIRIN 81 MG PO (08:29)
[2025-07-24] MEDS: TOPROL XL 100 MG PO ×2 (08:29→21:20)
[2025-07-24] MEDS: MIRALAX PO (08:29)
[2025-07-24] MEDS: FLOMAX 0.4 MG PO (08:29)
[2025-07-24] MEDS: NSS (PRESERVATIVE FREE) 10 ML IV (08:29)
[2025-07-24] MEDS: PROTONIX IV 40 MG IV (08:29)
[2025-07-24 08:46] LABS: Hematocrit 36.0 % (39.0-52.0); Hemoglobin 12.9 g/dL (13.0-18.0); Mean Corp Hgb Conc. 35.8 g/dL (33.0-37.0); Mean Corpuscular Volume 87.0 fL (80.0-94.0); Platelet Count 259 10^3/uL (130-400); Red Cell Dist. Width 11.4 % (11.5-14.5)
[2025-07-24 09:35] LABS: Blood Urea Nitrogen 13 mg/dl (9-20); Calcium 8.3 mg/dl (8.4-10.2); Carbon Dioxide 29 mmol/L (22-30); Chloride 105 mmol/L (98-107); Estimated Creatinine Clearance 78 ml/min; Glucose 84 mg/dl (70-99); Potassium 4.2 mmol/L (3.5-5.1); Sodium 137 mmol/L (135-145); eGFR > 60.00
--- NOTE | 2025-07-24 11:29 | CON.GS ---
Consultation
-
Date/Time Consultation Performed: 07/24/2025 11:15 AM
Performing Provider: Stephen
Reason for Consultation: choledocholithiasis, cholelithiasis
Medical History
-
Chief Complaint: Abdominal pain
History of Present Illness:
Patient is a 65-year-old male with PMH notable for CAD/stents, CABG, prostate cancer with history of XRT, aortic dissection, TEVAR, ureteral stricture.
He was in his usual baseline state of health until this past week when he developed the acute onset of epigastric and substernal chest pain. He was promptly evaluated emergency department and found to have elevated LFTs, gallstones, mild thickening
of the gallbladder. He was admitted by the hospitalist service with GI consultation. An MRI was obtained which was suggestive of choledocholithiasis. He underwent ERCP sphincterotomy stone extraction and pancreatic duct stent placement yesterday
evening 07/23/2025.
Today patient is asymptomatic. Tolerating clear liquid diet. No abdominal pain.
Past Medical History
Past Medical History: Other ( CAD/stents, CABG, prostate cancer with history of XRT, aortic dissection, TEVAR, ureteral stricture.)
Past Surgical History: Other (CABG, coronary stents, cystoscopy lithotripsy and ureteral stricture dilation, ascending aorta and hemiarch replacement, TEVAR)
Social History
Tobacco: Non-Smoker
Alcohol: Occasional
Family History
Family History: Reviewed & Not Pertinent
Allergies / Home Medications
Allergy/AdvReac Type Severity Reaction Status Date / Time
No Known Allergies Allergy Verified 07/21/25 21:08
�Medication �Instructions �Recorded �Confirmed �Type
aspirin 81 mg chewable tablet 81 mg PO DAILY #0 tabs 08/31/22 07/22/25 Rx
diltiazem HCl 120 mg capsule,24 120 mg PO HS Arrhythmia 03/14/23 07/22/25 History
hr,extended release
lisinopril 10 mg tablet 10 mg PO DAILY Blood Pressure 03/14/23 07/22/25 History
rosuvastatin 20 mg tablet (Crestor) 20 mg PO DAILY High Cholesterol 03/14/23 07/22/25 History
tamsulosin 0.4 mg capsule 0.4 mg PO DAILY #30 caps 03/25/23 07/22/25 Rx
metoprolol succinate 200 mg 100 mg PO BID Blood Pressure 07/22/25 07/22/25 History
tablet,extended release 24 hr
(Toprol XL)
therapeutic multivitamin 1 tab PO DAILY Supplement 07/22/25 07/22/25 History
Review of Systems
-
History Source: Patient
All other systems: Negative unless noted
A 10 point review of systems was completed, and was negative except as per HPI.
Physical Exam
Vital Signs
Temp Pulse Resp BP Pulse Ox
98.3 F 64 16 140/70 98
07/24/25 11:22 07/24/25 11:22 07/24/25 11:22 07/24/25 11:22 07/24/25 11:22
07/23/25 07/24/25 07/25/25
06:59 06:59 06:59
Actual Weight 84.453 kg 84.567 kg
Body Mass Index (BMI) 26.0
Lab Results
07/24/25 07:51
07/24/25 07:51
WBC 10.3 10^3/uL (4.8-10.8) 07/24/25 07:51
Hgb 12.9 g/dL (13.0-18.0) L 07/24/25 07:51
Hct 36.0 % (39.0-52.0) L 07/24/25 07:51
Plt Count 259 10^3/uL (130-400) 07/24/25 07:51
Abs Immat Gran (auto) 0.0 10^3/uL (0-0.05) 07/21/25 21:12
Neutrophils % 78.9 % (42.2-75.2) H 07/21/25 21:12
Physical Exam
General: Well Developed, Well Nourished, No Apparent Distress and Comfortable
HEENT: Normocephalic, Anicteric and Moist Mucous Membranes
Respiratory: Non Labored Respirations
GI: Soft, Non Tender and Non Distended
Skin: Warm
Neuro: AO x 3
Psych: Calm
Data Reviewed
-
Radiology: Image Personally Visualized and interpreted (ERCP images showed opacification of the cystic duct and possible delayed filling of the gallbladder)
Ultrasound: Image Personally Visualized and interpreted (Cholelithiasis and mild gallbladder wall thickening with top normal common bile duct.) and Report Reviewed by me
MRI: Image Personally Visualized and interpreted (Biliary ductal dilation, gallbladder distention with small layering stones. No wall thickening. No Fred cholecystic edema. Diffuse biliary ductal dilation.) and Report Reviewed by me
Assessment / Plan
-
Assessment: 65-year-old male initially admitted with choledocholithiasis, gallstones also confirmed on MRI and ultrasound imaging. He is now postprocedure day 1 from ERCP sphincterotomy with stone extraction and prophylactic pancreatic duct
placement.
Reviewed with patient indication for cholecystectomy in the setting of gallstone mediated complication. He appears to be medically stable for cholecystectomy at this index hospitalization which patient advises is his preference as well.
Laparoscopic cholecystectomy with intraoperative cholangiogram was reviewed in detail with the patient clued the operative technique, potential operative findings and the management, alternative treatment options, benefits and risks such as but not
limited to bleeding, infectious and related complications iatrogenic injury to surrounding viscera, common bile duct injury, bile duct leak. We discussed the typical postoperative recovery pending the operative findings and procedure. Any of the
patient's concerns or questions were confirmed to be fully addressed.
Plan: Patient is added onto the OR schedule for cholecystectomy today
There is a somewhat busy OR schedule so advised patient that it would likely not be until this evening and there is a small but potential chance that surgery would have to be bumped pending emergency surgeries and the OR access
N.p.o.
IV fluids
Unasyn will be continued for antibiotic prophylaxis
Await timing of surgery this evening
--- NOTE | 2025-07-24 12:17 | W.PN.GI.CBS2 ---
Today's Communication / Plan
-
xray as outpatient
Assessment / Plan
-
Pt is a 65yo hx CAD with prior stents on ASA daily, CABG, prostate CA with prior XRT, aortic dissection with prior repair 2021, TEVAR 2022, cysto and lithotripsy of ureteral stone and stricture dilation 05/2025 now presents with chest/abdominal
pain. On admission noted with bili 2.5, AST 995, ALT 519, alk phos 173 with lipase 119 with prior normal AST/ALT in January. US on admission with cholelithiasis and mild thickening of the gallbladder wall with top normal common bile duct. Acute
cholecystitis cannot be excluded and correlation with liver enzymes is needed and fatty liver.
-acute onset of epigastric/chest post prandial pain
-elevated LFT's
-US with cholelithiasis and mild GB wall thickening top normal CBD
other med problems:
CAD with prior stents, CABG, prostate CA with prior XRT, aortic dissection with prior repair 2021, TEVAR 2022, cysto and lithotripsy of ureteral stone and stricture dilation 05/2025
PLAN:
- outpatient xray (we will arrange)
- other management per surgery
will sign off call with questions
Subjective
Subjective
Date of Service: July 24, 2025
Pt feels good
Objective
Data Reviewed
Laboratory Data:
Laboratory Results
07/24/25 07:51
07/24/25 07:51
Laboratory Results
PT 15.8 Sec (11.4-14.6) H 07/23/25 06:39
INR 1.20 07/23/25 06:39
Total Bilirubin 1.1 mg/dl (0.2-1.3) D 07/23/25 06:39
AST 298 U/L (17-59) H 07/23/25 06:39
ALT 354 U/L (0-50) H 07/23/25 06:39
Alkaline Phosphatase 124 U/L (38-126) 07/23/25 06:39
Lipase 119 U/L (23-300) 07/21/25 21:12
Vital Signs and I&O:
Vital Signs
Temp Pulse Resp BP Pulse Ox
98.3 F 64 16 140/70 98
07/24/25 11:22 07/24/25 11:22 07/24/25 11:22 07/24/25 11:22 07/24/25 11:22
I&O
07/23/25 07/24/25 07/25/25
06:59 06:59 06:59
Intake Total 2420 / 2420 50 / 50 540 / 540
Balance 2420 / 2420 50 / 50 540 / 540
Physical Exam
Physical Exam
GI: Soft and Non Distended
--- NOTE | 2025-07-24 15:12 | W.PN.HOSP.TC ---
Today's Communication/Plan
-
Scheduled for laparoscopic cholecystectomy
Assessment / Plan
Assessment / Plan
Impression/plan
A/P: Patient is a 65y M with PMH significant for aortic dissection s/p repair who presents to ED complaining of abdominal pain with N/V.
Symptomatic Cholelithiasis/biliary colic, concern for acute cholecystitis
US abdomen:
There is cholelithiasis and mild thickening of the gallbladder wall with top normal common bile duct. Acute cholecystitis cannot be excluded and correlation with liver enzymes is needed.
MRI abdomen:
1. CHOLELITHIASIS, gallbladder sludge, and gallbladder distention.
2. MILD INTRAHEPATIC and EXTRAHEPATIC BILIARY DILATATION.
3. Mild chronic bilateral renal disease.
4. Chronic abdominal aortic dissection.
5. 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
6. Moderate distention of the proximal colon with fecal material suggesting CONSTIPATION.
- Abnormal LFTs, abd pain, nausea / vomiting and abnormal CT findings.
- Symptoms resolved since arrival - ? passed CBD stone.
- Supportive care with IVFs, NPO, pain control and antiemetics.
Challenge with oral intake tonight.
ERCP 07/23 with CBD stone removed with sphincterectomy and pancreatic stent
General Surgery consultation with consideration of cholecystectomy
Noted with left shift on CBC improved. Would continue antibiotics at this point. Status post single dose of Zosyn in the ED. Will transition to Unasyn.
Acute kidney injury. Creatinine 1.4. Improved
Hold lisinopril.
Observe off IV fluids
Avoid NSAIDs
Follow BMP
Benign Hypertension
History of Aortic Dissection s/p Repair
- Stable. BP well-controlled.
- Continue current med regimen with holding parameters.
Status post aortic aneurysm endovascular repair 2022
History of Prostate Cancer
- Stable. Continue tamsulosin.
- Bladder scan protocol.
DVT Prophylaxis: SCDs
Code Status: Full
Anticipated Discharge: 24 - 48 hours
Subjective/Interval History
-
Date of Service: July 24, 2025
Objective Data
-
Labs:
Laboratory Results
07/24/25
07:51
WBC 10.3
Hgb 12.9 L
Hct 36.0 L
Plt Count 259
Sodium 137
Potassium 4.2
Chloride 105
Carbon Dioxide 29
BUN 13
Creatinine 1.0
Glucose 84
Calcium 8.3 L
Vital Signs:
Vital Signs
Temp Pulse Resp BP Pulse Ox
98.3 F 64 16 140/70 98
07/24/25 11:22 07/24/25 11:22 07/24/25 11:22 07/24/25 11:22 07/24/25 11:22
I&O
07/23/25 07/24/25 07/25/25
06:59 06:59 06:59
Intake Total 2420 / 2420 50 / 50 540 / 540
Balance 2420 / 2420 50 / 50 540 / 540
Physical Exam
-
General: Well Developed and No Apparent Distress
HEENT: Normocephalic, Atraumatic and Moist Mucous Membranes
Respiratory: Clear to Auscultation
Cardiac: Regular Rhythm and S1/S2; Negative Murmur, Rub or Gallop
GI: Soft, Nontender, Nondistended and Normal Bowel Sounds; Negative Organomegaly
Rectal: Deferred by Provider
Musculoskeletal: No Clubbing, No Cyanosis and No Edema
Skin: Negative Rash
Neuro: Nonfocal/Grossly Intact
--- NOTE | 2025-07-24 15:36 | W.SUR.PREOP ---
Pre-Operative Surgical Note
-
I have examined this patient prior to the performance of the scheduled procedure.
The patient's condition is unchanged from the time of the current History and
Physical and the patient is able to undergo the scheduled procedure.
--- NOTE | 2025-07-24 15:45 | CM ---
Home no needs.
Plan; Home no needs.
--- NOTE | 2025-07-24 17:21 | W.IMMPOSTOP ---
Surgical Immed Post Op Note
-
Primary Surgeon: Bandar Lemus MD
Assisting Surgeon: None
Pre-op Diagnosis: Choledocholithiasis
Post-op Diagnosis: Acute cholecystitis, choledocholithiasis
Procedure Performed: Laparoscopic cholecystectomy with cholangiogram
Anesthesia Type: General
Specimen / Cultures: Gallbladder and contents
Estimated Blood Loss: 11 cc
Complications: None
Operative Findings: Acutely inflamed edematous gallbladder. Critical view of safety obtained prior to a cholangiogram which demonstrated a long cystic duct, dilated CBD but otherwise no filling defects and fairly brisk flow into the duodenum. The
duct was ligated with a 0 PDS Endoloop. There was minimal spillage of bile and 2 stones from our ductotomy which were immediately removed.
--- NOTE | 2025-07-24 17:22 | OR.RPT ---
Operative Report
Operative Report
Patient Name: Octavio Almonte
: 1960
Date of Operation: 07/24/2025
Preoperative Diagnosis: Choledocholithiasis
Postoperative Diagnosis: Choledocholithiasis, acute cholecystitis
Procedure(s):
Laparoscopic Cholecystectomy with Cholangiogram
Surgeon(s):
Dr. Lemus
Handle Sander Operator(s):
SEVERO Cox
Anesthesia: General
Estimated Blood Loss: 11 cc
Urine Output: None
Drains/Lines/Implants: None
Specimens:
1. Gallbladder and contents
HPI/Surgical Indications:
This is a 65-year-old male who presented with abdominal pain. Exam, labs and imaging are consistent with choledocholithiasis for which he underwent a successful ERCP. Risks/Benefits/Alternatives were discussed at length regarding interval
cholecystectomy, and the patient agreed to proceed with surgery at the same admission.
Operative Findings: Acutely inflamed edematous gallbladder. Critical view of safety obtained prior to a cholangiogram which demonstrated a long cystic duct, dilated CBD but otherwise no filling defects and fairly brisk flow into the duodenum. The
duct was ligated with a 0 PDS Endoloop. There was minimal spillage of bile and 2 stones from our ductotomy which were immediately removed.
Procedure Description:
The patient was brought to the Operating Room and placed in the supine position with one arm tucked. Following uneventful induction of general endotracheal anesthesia, an orogastric tube was placed. The abdomen was prepped and draped in the usual
sterile fashion. A timeout was performed confirming the procedure, consent, and that IV antibiotics were infused and sequential compression devices were confirmed to be on. The abdomen was entered using a left subcostal Veress technique which
required a single pass followed by a 5 mm right upper quadrant Optiview trocar. Pneumoperitoneum to 15 mmHg pressure was obtained without difficulty and we confirmed that no injury had occurred during our entry. The patient was positioned in
reverse Trendelenberg and rotated with the right side up slightly. Two 5 mm trocars were then placed along the right subcostal margin, followed by a 12 mm port in the epigastrium. The gallbladder was elongated and distended and the wall appeared
thickened and inflamed. A locking grasping forceps was placed on the fundus of the gallbladder where it was then retracted cephalad and to the right. Using appropriate grasping instruments, the peritoneum overlying the triangle of Calot was incised
and extended superiorly on both the anterior and posterior gallbladder noyola. The infundibulum was dissected off the cystic plate. The cystic triangle was dissected until a critical view of safety was achieved. The cystic artery was medialized,
dissected and controlled with 2 proximal clips and 1 distal. The cystic duct/gallbladder junction in turn was identified, dissected circumferentially and a clip was placed. A ductotomy was made and a cholangiocatheter on an Perdomo clamp was inserted
into the cystic duct. A C-arm was draped and brought into the field. An intra-operative cholangiogram was performed and was noted to have:
No filling defects in the biliary tree
A long cystic duct and moderate biliary dilation
Brisk flow of contrast into the duodenum
Normal biliary anatomy
The catheter was then removed and the cystic duct was controlled with a 0 PDS Endoloop. After ensuring both the artery and duct were divided, the gallbladder was freed from the liver using electrocautery. There was some spillage of bile from our
ductotomy along with 2 small gallstones which were immediately removed. The gallbladder bed was inspected and excellent hemostasis was obtained. The gallbladder was extracted through the 12 mm trocar site using an endocatch bag. The abdomen was
again irrigated and excellent hemostasis was assured. All remaining trocars were then removed and the pneumoperitoneum was evacuated. The 12 mm trocar site was closed using 0 PDS suture. All trocar sites were closed at the skin level using 4-0
Monocryl followed by Dermabond. Overall, the patient tolerated the procedure well and was taken to the Recovery Room postoperatively in stable condition.
Ida was the attending physician and performed the procedure with assistance of the PA above. The assistance of SEVERO Cox was required due to the complexity of the procedure. During the procedure Elena assisted with port placement, tissue
retraction and holding camera as well as closure of the wound. I was present for all portions of the case, excluding skin closure.
Bandar Lemus MD
[2025-07-24 18:32] LABS: Hepatitis B Surface Antigen Negative (Negative)
[2025-07-24 18:50] LABS: Hepatitis C Antibody Negative (Negative)
[2025-07-24] MEDS: DILAUDID 0.5 MG IV (19:28)
[2025-07-24] MEDS: CARDIZEM CD 120 MG PO (22:16)
[2025-07-25 01:00] VITALS: BP 122/69
[2025-07-25 03:00] VITALS: BP 123/70
[2025-07-25 03:41] VITALS: BMI 26.6
[2025-07-25] MEDS: UNASYN IV ×2 (04:11→09:27)
[2025-07-25 07:05] VITALS: BP 123/78
[2025-07-25 08:57] LABS: Hematocrit 37.8 % (39.0-52.0); Hemoglobin 13.3 g/dL (13.0-18.0); Mean Corp Hgb Conc. 35.2 g/dL (33.0-37.0); Mean Corpuscular Volume 86.3 fL (80.0-94.0); Platelet Count 282 10^3/uL (130-400); Red Cell Dist. Width 11.5 % (11.5-14.5)
[2025-07-25 09:17] LABS: ALT (SGPT) 191 U/L (0-50); AST (SGOT) 97 U/L (17-59); Albumin 3.3 g/dl (3.5-5.0); Alkaline Phosphatase 111 U/L (38-126); Blood Urea Nitrogen 11 mg/dl (9-20); Calcium 8.5 mg/dl (8.4-10.2); Carbon Dioxide 27 mmol/L (22-30); Chloride 103 mmol/L (98-107); Estimated Creatinine Clearance 71 ml/min; Glucose 185 mg/dl (70-99); Potassium 4.5 mmol/L (3.5-5.1); Sodium 134 mmol/L (135-145); Total Protein 6.0 g/dl (6.3-8.2); eGFR > 60.00
[2025-07-25] MEDS: LOW STRENGTH ASPIRIN 81 MG PO (09:26)
[2025-07-25] MEDS: PROTONIX IV 40 MG IV (09:26)
[2025-07-25] MEDS: MIRALAX PO ×2 (09:26→09:29)
[2025-07-25] MEDS: TOPROL XL 100 MG PO (09:26)
[2025-07-25] MEDS: FLOMAX 0.4 MG PO (09:26)
[2025-07-25] MEDS: NSS (PRESERVATIVE FREE) 10 ML IV (09:27)
[2025-07-25 11:04] VITALS: BP 137/66
--- NOTE | 2025-07-25 11:07 | W.PN.GS2 ---
Addendum entered and electronically signed by Sergey Broussard MD 07/25/25 13:17:
Patient seen and examined.
No complaints, feels well. Pain well-controlled. No nausea or vomiting. Afebrile. Abdomen. Voiding. Passing flatus, no BM.
Gen: NAD
Abd: soft, NT/ND, non-peritoneal, incisions c/d/i - no erythema, ecchymosis or drainage
Patient is a 65 yo M p/w choledocholithiasis
S/p ERCP on 07/23 with CBD stone removed with sphincterectomy and pancreatic stent
POD#1 s/p lap den with IOC
AFVSS
Labs notable for mild reactive leukocytosis, normal bilirubin, down trending LFTs
Doing well from post op standpoint
Plan:
-- Regular diet
-- Pain control: Tylenol and Tramadol
-- OOB/Ambulate
-- Abx: none further needed from surgical perspective
-- OK for d/c from surgical standpoint
-- DC instructions updated
Original Note:
Today's Communication / Plan
-
dispo planning
Assessment / Plan
-
65 yo male presenting with choledocholithiasis and acute calculous cholecystitis s/p ERCP on 07/23 with CBD stone removed with sphincterectomy and pancreatic stent now POD #1 lap den with IOC
AFVSS
bilirubin wnl, minimal transaminitis (improved)
mild reactive leukocytosis
Doing well from post op standpoint
Plan:
Advance to regular diet
Analgesics prn
OOB/Ambulate
No need for further abx from surgical standpoint
Ok for d/c from surgical standpoint
Subjective Data
-
Date of Service: July 25, 2025
Pt seen and examined at bedside with Dr Broussard. Denies n/v. OOB to chair. Reports minimal incisional discomfort. Passing flatus, BM yesterday.
Objective Data
-
Intake and Output
07/24/25 07/25/25 07/26/25
06:59 06:59 06:59
Intake Total 50 / 50 1380 / 1380
Balance 50 / 50 1380 / 1380
Intake:
Oral fluids 980 / 980
IV fluids (Total) 50 / 50 160 / 160
Lactacted Ringers 50 / 50
normosol 100 / 100
IV piggybacks 240 / 240
Other:
Number of approximated MODERATE 2 2
amounts of urine
Number of approximated LARGE 1
amounts of urine
Vital Signs
Temp Pulse Resp BP Pulse Ox
98.1 F 63 16 137/66 98
07/25/25 11:04 07/25/25 11:04 07/25/25 11:04 07/25/25 11:04 07/25/25 11:04
Lab Results
07/25/25 08:45
07/25/25 08:45
Calcium 8.5 mg/dl (8.4-10.2) 07/25/25 08:45
Total Bilirubin 0.8 mg/dl (0.2-1.3) 07/25/25 08:45
Direct Bilirubin 1.7 mg/dl (0.0-0.4) H 07/22/25 06:24
AST 97 U/L (17-59) H 07/25/25 08:45
ALT 191 U/L (0-50) H 07/25/25 08:45
Alkaline Phosphatase 111 U/L (38-126) 07/25/25 08:45
Total Protein 6.0 g/dl (6.3-8.2) L 07/25/25 08:45
Albumin 3.3 g/dl (3.5-5.0) L 07/25/25 08:45
Physical Exam
-
NAD
ABD soft, nd, nt
Incisions well approximated, intact glue
--- NOTE | 2025-07-25 12:17 | CM ---
Patient is ambulatory in room, plan is to home, possibly today, no needs.
Plan; Home no needs.
--- NOTE | 2025-07-25 14:21 | W.DS.TRANS ---
DC Summary - Corporate Accounting Manager
-
Discharge Instructions:
Sleep Apnea Risk Low
Discharge Diagnosis/Procedures Acute cholecystitis with choledocholithiasis
Diet As tolerated
Activity No strenuous activity
Bathing Restrictions OK to Shower
Others Tests please return in 2 weeks for X ray to see in
pancreatic ductal stent has passed. See slip
for order
Instructions:
Stand-Alone Forms:
Changes to Home Medications: No
Discharge Medications:
DC Medications w/original date entered in [facility]
aspirin 81 mg chewable tablet 81 mg PO DAILY #0 tabs 08/31/22
diltiazem HCl 120 mg capsule,24 hr,extended release 120 mg PO HS Arrhythmia 03/14/23
lisinopril 10 mg tablet 10 mg PO DAILY Blood Pressure 03/14/23
rosuvastatin 20 mg tablet (Crestor) 20 mg PO DAILY High Cholesterol 03/14/23
tamsulosin 0.4 mg capsule 0.4 mg PO DAILY #30 caps 03/25/23
metoprolol succinate 200 mg tablet,extended release 24 hr (Toprol XL) 100 mg PO BID Blood Pressure 07/22/25
therapeutic multivitamin 1 tab PO DAILY Supplement 07/22/25
Home Medication Changes
Pending Results: No
[2025-07-25 15:22] VITALS: BP 120/63
== END 2025-07-25 15:44 | disposition home or self-care (01) | DRG 418 ==
LOC: 4 WEST ACU 04:43
PROVIDERS: Emergency Medicine; Internal Medicine Gastroenterology; Nurse Practitioner Adult Health; Nurse Practitioner Family; Surgery; ADMITTING PHYSICIAN Hospitalist; ATTENDING PHYSICIAN Internal Medicine; CONSULT PHYSICIAN Internal Medicine; EMERGENCY PHYSICIAN Emergency Medicine; FAMILY PHYSICIAN Family Medicine; OTHER PHYSICIAN Surgery
PROC: 0DB58ZX Excision of Esophagus, Via Natural or Artificial Opening Endoscopic, Diagnostic (ICD-10-PCS; 2025-07-23)
PROC: 0FT44ZZ Resection of Gallbladder, Percutaneous Endoscopic Approach (ICD-10-PCS; 2025-07-24)
PROC: BF5C2Z0 Other Imaging of Hepatobiliary System, All using Fluorescing Agent, Intraoperative (ICD-10-PCS; 2025-07-24)
DX: K80.62 Calculus of gallbladder and bile duct with acute cholecystitis without obstruction (principal); N17.9 Acute kidney failure, unspecified; I10 Essential (primary) hypertension; K31.89 Other diseases of stomach and duodenum; K31.7 Polyp of stomach and duodenum; K20.90 Esophagitis, unspecified without bleeding; Z79.899 Other long term (current) drug therapy
CPT/HCPCS: 74183; 74300; 74330; 76000; 76700; 80048; 80053; 82248; 83690; 84484; 85025; 85027; 85610; 86704; 86705; 86709; 86803; 87340; 88304; 88305; 88342; 93005; A4300; A9575; C1769; C2617

== ENCOUNTER → 2025-08-13 09:38 | Outpatient (REF) | payer OTHER, SELFPAY | LOC: RAD 09:38 | PROVIDERS: ATTENDING PHYSICIAN Internal Medicine Gastroenterology; FAMILY PHYSICIAN Family Medicine | DX: K80.50 Calculus of bile duct without cholangitis or cholecystitis without obstruction (principal); Z96.89 Presence of other specified functional implants | CPT/HCPCS: 74018 ==